=== PATIENT | male | born 1990 | race Caucasian/White ===

== ENCOUNTER → 2017-07-15 | Outpatient (CLI) | payer SELFPAY ==
[~2017-07-15] VITALS: Ht 188 cm; Wt 95.0 kg
[~2017-07-15] MED LIST: AMOXIL500 M1 PO; PREDNISONE20 MG PO; PRILOSEC 20MG20 MG PO
[2017-07-15 17:01] VITALS: BP 133/93
== END ==
LOC: AMSURD 16:46
DX: R07.9 Chest pain, unspecified (principal)

== ENCOUNTER 2018-04-12 18:55 | Emergency (ER) | payer BC ==
[~2018-04-12] VITALS: Ht 188 cm; Wt 102.3 kg
[2018-04-12] MEDS ORDERED: BIAXIN 500MG T500 MG PO (19:05)
[2018-04-12] MEDS ORDERED: BETAMETHASONE V15 G1 TOP (19:06)
[2018-04-12 19:39] LABS: EOS # 0.1 (0.04-0.40); EOS % 0.8 % (0.0-4.0); HEMATOCRIT 43.9 % (42.0-52.0); HEMOGLOBIN 15.4 g/dL (13.5-18.0); LYMPH# 2.5 (1.50-4.00); MEAN CELL VOLUME 85 fl (78-100); MEAN CORPUSCULAR HEMOGLOBIN 30 pg (27-31); MEAN CORPUSCULAR HGB CONC 35 g/dL (33-37); MEAN PLATELET VOLUME 9.5 fl (7.4-10.4); MONO # 0.6 (0.20-0.80); NEU # 2.8 (1.40-6.50); PLATELET COUNT 275 K/mm3 (130-400); RED BLOOD COUNT 5.15 M/mm3 (4.20-5.60); WHITE BLOOD COUNT 5.9 K/mm3 (4.8-10.8)
[2018-04-12 19:51] LABS: ALBUMIN 4.6 g/dL (3.5-5.0); CALCIUM 9.4 mg/dL (8.4-10.2); POTASSIUM 3.8 mmol/L (3.6-5.0); TOTAL BILIRUBIN 0.4 mg/dL (0.2-1.3)
[2018-04-12 19:54] LABS: LIPASE 214 U/L (23-300)
[2018-04-12 20:22] LABS: URINE APPEARANCE CLEAR; URINE BILIRUBIN NEGATIVE (NEGATIVE); URINE BLOOD NEGATIVE (NEGATIVE); URINE COLOR YELLOW; URINE GLUCOSE NEGATIVE (NEGATIVE); URINE KETONE NEGATIVE (NEGATIVE); URINE LEUKOCYTE ESTERASE NEGATIVE (NEGATIVE); URINE MUCUS PRESENT (NOT PRESENT); URINE NITRATE NEGATIVE (NEGATIVE); URINE PROTEIN(semi-quant) NEGATIVE (NEGATIVE); URINE UROBILINOGEN NORMAL (NORMAL); URINE WBC 0-1 /hpf (0-3)
[2018-04-12 23:16] VITALS: BP 140/81
== END 2018-04-12 23:16 | disposition home or self-care (01) ==
LOC: ED 18:55
PROVIDERS: Nurse Practitioner Family
DX: R10.84 Generalized abdominal pain (principal); R11.0 Nausea; K21.9 Gastro-esophageal reflux disease without esophagitis; Z79.899 Other long term (current) drug therapy; F17.220 Nicotine dependence, chewing tobacco, uncomplicated
CPT/HCPCS: J2405; J7030

== ENCOUNTER → 2018-10-03 | Outpatient (CLI) | payer BC ==
[~2018-10-03] MED LIST changes: +BETAMETHASONE V15 G1 TOP; +BIAXIN 500MG T500 MG PO
== END ==
LOC: RAD 07:43
DX: S62.306A Unspecified fracture of fifth metacarpal bone, right hand, initial encounter for closed fracture (principal)

== ENCOUNTER 2020-11-07 21:58 | Emergency (ER) | payer BC ==
[2020-11-07] MEDS ORDERED: KETOROLAC10 MG PO (23:21)
[2020-11-07 23:39] VITALS: BP 134/84
== END 2020-11-07 23:40 | disposition home or self-care (01) ==
LOC: ED 21:58
DX: S40.212A Abrasion of left shoulder, initial encounter (principal); S80.211A Abrasion, right knee, initial encounter; Z87.891 Personal history of nicotine dependence; W17.89XA Other fall from one level to another, initial encounter
CPT/HCPCS: J1885

== ENCOUNTER → 2023-07-11 | Outpatient (REF) | payer BC ==
[~2023-07-11] MED LIST changes: +KETOROLAC10 MG PO
== END ==
LOC: LAB 07:09 → EDSTATUS 07:12
DX: Z00.00 Encounter for general adult medical examination without abnormal findings (principal)